=== PATIENT | male | born 1965 | race Caucasian/White ===

== ENCOUNTER 2019-06-25 11:23 | Inpatient (IN) ==
[2019-06-25] MEDS ORDERED: SODIUM CHLORIDE 0.9% 1,000 ML IV STA ×2 (11:59→13:13)
[2019-06-25] MEDS ORDERED: ONDANSETRON 4 MG/2 ML VIAL IV STA (11:59)
[2019-06-25 12:09] LABS: Basophils % 0.3 % (0.0-0.8); Eosinophils % 0.1 % (0.00-10.9); Hemoglobin 18.9 GM/DL (14.0-18.0); Immature Granulocytes % 0.2 %; Immature Granulocytes Absolute 0.02 #; Lymphocytes # 1.8 10*3/uL (1.4-4.0); Lymphocytes % 20.6 % (21.2-54.2); Mean Corpuscular HGB Conc 34.4 GM/DL (32-36); Mean Corpuscular Volume 88.9 FL (87-102); Mean Platelet Volume 10.7 FL (9.6-12.0); Monocytes % 12.9 % (1.7-12.7); Neutrophils % 65.9 % (38.7-73.9); Platelet Count 261 T/CUMM (130-400); Red Blood Count 6.19 MC/CUMM (3.8-5.5); Red Cell Distribution Width 13.2 % (9.3-17.3); White Blood Count 8.7 T/CUMM (4-12)
[2019-06-25 12:26] LABS: Albumin 4.6 G/DL (3.4-5.0); Bilirubin,Total 0.9 MG/DL (0.2-1.0); Calcium 8.9 MG/DL (8.5-10.1); Osmolality,Calculated 272.2 MOS/KG (273-304); Total Protein 9.4 G/DL (6.4-8.3)
[2019-06-25 12:39] LABS: Anisocytosis Slight; Band Neutrophils 14 % (0-10); Lymphocytes 22 % (20-55); Platelet Estimate Normal; Segmented Neutrophils 53 % (50-85); Spherocytes Few; Total Cells Counted 100
[2019-06-25] MEDS ORDERED: ACETAMINOPHEN 325 MG TABLET PO PRN (14:18)
[2019-06-25] MEDS ORDERED: DEXTROSE 10% 250 ML BAG IV PRN (14:18)
[2019-06-25] MEDS ORDERED: ONDANSETRON 4 MG/2 ML VIAL IV PRN (14:18)
[2019-06-25] MEDS ORDERED: GLUCAGON 1 MG VIAL IM PRN (14:18)
[2019-06-25] MEDS: SODIUM CHLORIDE 0.9% 1,000 ML IV SCH (17:58)
[2019-06-26] MEDS: SODIUM CHLORIDE 0.9% 1,000 ML IV SCH ×3 (01:30→17:28)
[2019-06-26] MEDS: OMEPRAZOLE ODT 20 MG TABLET PO SCH ×2 (01:30→08:46)
[2019-06-26 06:04] LABS: Basophils % 0.2 % (0.0-0.8); Eosinophils # 0.1 10*3/uL (0.0-0.87); Eosinophils % 0.9 % (0.00-10.9); Hemoglobin 15.7 GM/DL (14.0-18.0); Immature Granulocytes % 0.6 %; Immature Granulocytes Absolute 0.03 #; Lymphocytes # 1.1 10*3/uL (1.4-4.0); Lymphocytes % 19.8 % (21.2-54.2); Mean Corpuscular HGB Conc 34.9 GM/DL (32-36); Mean Corpuscular Volume 87.9 FL (87-102); Monocytes % 17.2 % (1.7-12.7); Neutrophils % 61.3 % (38.7-73.9); Platelet Count 189 T/CUMM (130-400); Red Blood Count 5.12 MC/CUMM (3.8-5.5); Red Cell Distribution Width 12.7 % (9.3-17.3); White Blood Count 5.4 T/CUMM (4-12)
[2019-06-26 06:39] LABS: Calcium 7.8 MG/DL (8.5-10.1); Osmolality,Calculated 282.1 MOS/KG (273-304); Risk Ratio 4.07; Thyroid Stimulating Hormone 0.442 uIU/ml (0.358-3.74); VLDL CHOLESTEROL 64.6 MG/DL
[2019-06-26 06:43] LABS: Lymphocytes 19 % (20-55); Segmented Neutrophils 66 % (50-85); Total Cells Counted 100
[2019-06-26 06:44] LABS: Platelet Estimate Decreased; Polychromasia Few
[2019-06-26] MEDS ORDERED: POTASSIUM CHLORIDE 20 MEQ TABLET PO PRN (07:50)
[2019-06-26] MEDS ORDERED: ZALEPLON 5 MG CAPSULE PO PRN (22:47)
[2019-06-27 01:43] LABS: Basophils % 0.4 % (0.0-0.8); Eosinophils # 0.1 10*3/uL (0.0-0.87); Eosinophils % 1.3 % (0.00-10.9); Hemoglobin 14.2 GM/DL (14.0-18.0); Immature Granulocytes % 0.4 %; Immature Granulocytes Absolute 0.02 #; Lymphocytes # 1.5 10*3/uL (1.4-4.0); Mean Corpuscular HGB Conc 34.6 GM/DL (32-36); Mean Platelet Volume 10.6 FL (9.6-12.0); Monocytes % 18.1 % (1.7-12.7); Neutrophils % 47.8 % (38.7-73.9); Platelet Count 178 T/CUMM (130-400); Red Blood Count 4.66 MC/CUMM (3.8-5.5); Red Cell Distribution Width 12.8 % (9.3-17.3); White Blood Count 4.6 T/CUMM (4-12)
[2019-06-27 01:55] LABS: Calcium 8.3 MG/DL (8.5-10.1); Osmolality,Calculated 284.4 MOS/KG (273-304)
[2019-06-27 02:10] LABS: Eosinophils 1 % (0-10); Lymphocytes 39 % (20-55); Segmented Neutrophils 44 % (50-85)
[2019-06-27 02:11] LABS: Platelet Estimate Normal
[2019-06-27 02:12] LABS: Total Cells Counted 100
[2019-06-27] MEDS: SODIUM CHLORIDE 0.9% 1,000 ML IV SCH ×2 (03:40→10:05)
[2019-06-27 09:19] VITALS: BP 124/74
[2019-06-27] MEDS: OMEPRAZOLE ODT 20 MG TABLET PO SCH (09:56)
== END 2019-06-27 12:08 | disposition home or self-care (01) | DRG 683 ==
LOC: N.ED 11:23 → N.EDINP 14:11 → N.2E 14:55
PROVIDERS: ADMIT Internal Medicine; ATTEND Internal Medicine